=== PATIENT | male | born 1975 | race Caucasian/White ===

== ENCOUNTER 2016-07-02 20:15 | Emergency (ER) | payer OTHER ==
[2016-07-02 23:09] VITALS: BP 153/101
== END 2016-07-02 23:09 | disposition home or self-care (01) ==
LOC: ED 20:15
DX: H66.92 Otitis media, unspecified, left ear (principal); J40 Bronchitis, not specified as acute or chronic; J03.90 Acute tonsillitis, unspecified
CPT/HCPCS: J0696; J1100

== ENCOUNTER 2016-08-09 22:23 | Emergency (ER) | payer OTHER ==
[2016-08-10 01:08] VITALS: BP 132/76
== END 2016-08-10 01:08 | disposition home or self-care (01) ==
LOC: ED 22:23
DX: J45.909 Unspecified asthma, uncomplicated (principal)